=== PATIENT | female | born 1985 | race Caucasian/White ===

== ENCOUNTER 2022-02-14 11:59 | Emergency (ER) | payer BC ==
[~2022-02-14] VITALS: Ht 162.6 cm; Wt 61.0 kg
[2022-02-14 12:09] VITALS: BP 140/89
[2022-02-14] MEDS ORDERED: ACETAMINOPHEN 325MG TABLET PO ONE (12:30)
[2022-02-14 13:05] LABS: BASOPHILS % 1.1 % (0.0-2.0); HEMATOCRIT. 39.9 % (36.0-48.0); HEMOGLOBIN. 13.4 g/dL (12.0-16.0); MEAN CORPUSCULAR HEMOGLOBIN 31.2 pg (28.0-32.0); MEAN CORPUSCULAR VOLUME 92.8 fL (81.0-99.0); MEAN PLATELET VOLUME 7.8 fl (7.4-10.4); MONOCYTES % 7.8 % (2.0-8.0); NEUTROPHILS % 74.1 % (40.0-76.0); PLATELET 197 x1000/uL (130-400); RED CELL DISTRIBUTION WIDTH 13.3 % (11.6-14.6)
[2022-02-14 13:20] LABS: CHLORIDE 102 mEq/L (98-107)
[2022-02-14 13:24] LABS: PROTHROMBIN TIME 10.3 sec (9.6-11.0)
[2022-02-14 13:28] LABS: CLARITY URINE CLEAR (CLEAR); COLOR URINE DARK YELLOW (YELLOW); KETONES URINE TRACE (NEGATIVE); LEUKOCYTE ESTERASE URINE 1+ (NEGATIVE); NITRITE URINE NEGATIVE (NEGATIVE); OCCULT BLOOD URINE NEGATIVE (NEGATIVE); PROTEIN URINE NEGATIVE (NEGATIVE); SPECIFIC GRAVITY URINE 1.022 (1.005-1.030)
[2022-02-14 13:43] LABS: HCG SCREEN NEGATIVE
== END 2022-02-14 14:54 | disposition left against medical advice (07) ==
LOC: ER 11:59
DX: N39.0 Urinary tract infection, site not specified (principal); E87.6 Hypokalemia; R10.32 Left lower quadrant pain; F14.10 Cocaine abuse, uncomplicated
CPT/HCPCS: 36415; 80053; 81003; 81025; 84703; 85025; 86850; 86900; 99283